=== PATIENT | female | born 1940 | race Caucasian/White ===

== ENCOUNTER 2024-09-14 16:38 | Inpatient (IN) | payer OTHER ==
[2024-09-14] MEDS ORDERED: LORazepam 2 MG/ML VIAL IV PRN (17:04)
[2024-09-14] MEDS ORDERED: ACETAMINOPHEN 650MG/RECT SUPP PR PRN (17:06)
[2024-09-14] MEDS ORDERED: BISACODYL 10 MG RECTAL SUPP PR PRN (17:06)
[2024-09-14] MEDS: MORPHINE 2 MG/ML SYR IV PRN (17:39)
[2024-09-14 22:06] VITALS: BMI 18.4
[2024-09-15] MEDS: SCOPOLAMINE HYDROBROMIDE PATCH TD SCH (04:02)
[2024-09-15 08:29] VITALS: BP 70/32
[2024-09-15 08:48] VITALS: O2SAT 92
[2024-09-15 22:22] VITALS: TEMP 95.4
== END 2024-09-16 20:29 | disposition expired | DRG 951 ==
LOC: 2ND 16:38 → 4TH 09-16 11:48
PROVIDERS: ADMIT Internal Medicine Geriatric Medicine; ATTEND Internal Medicine Geriatric Medicine
DX: Z51.5 Encounter for palliative care (principal)
CPT/HCPCS: J2270